=== PATIENT | female | born 1970 | race American Indian/Alaskan Native ===

== ENCOUNTER 2016-12-10 13:45 | Emergency (ER) | payer MEDICAID ==
--- NOTE | 2016-12-10 17:02 | Emergency Department Report ---
HPI - General Chief Complaint: Extremity Injury, Upper Time Seen by Provider: 12/10/16 16:27 - HPI HPI: 46-year-old female presents today stating that her primary care provider is out of town for 30 days and she needs a refill of her blood pressure and pain medication. Patient states that she has history of right-sided facial fracture and has a kate placed in her left arm. Patient gets prescribed tramadol or Vicodin for her pain. Patient states that she's been out of her metoprolol since . Denies following up with pain management. Denies fevers, chills, nausea, vomiting, chest pain, shortness of breath, abdominal pain. Denies any medical complaints. ED Past Medical Hx - Past Medical History Previous Medical History?: Yes Hx Hypertension: Yes Hx Seizures: Yes Additional medical history: mitral valve prolapse, neuralgia - Surgical History Past Surgical History?: Yes Additional Surgical History: gastric bypass (2009), right shoulder sugery - Social History Smoking Status: Never Smoker Substance Use Type: None - Medications Home Medications: Home Medications Medication Instructions Recorded Confirmed Last Taken Type Lisinopril [Zestril TAB] 20 mg PO QDAY #30 tablet 12/10/16 Unknown Rx Metoprolol [Lopressor TAB] 50 mg PO BID #60 tablet 12/10/16 Unknown Rx traMADol [Ultram 50 MG tab] 50 mg PO Q6HR PRN #20 tablet 12/10/16 Unknown Rx ED Review of Systems ROS: Stated complaint: RT ARM PAIN/FACIAL PAIN Other details as noted in HPI Constitutional: denies: chills, fever, malaise Eyes: denies: eye pain ENT: denies: ear pain, throat pain, congestion Respiratory: denies: cough, shortness of breath, wheezing Cardiovascular: denies: chest pain, palpitations Endocrine: no symptoms reported Gastrointestinal: denies: abdominal pain, nausea, vomiting Musculoskeletal: arthralgia Skin: denies: rash Neurological: denies: headache, weakness Physical Exam - Physical Exam Vital Signs: Vital Signs 12/10/16 13:51 Temperature 98.3 F Pulse Rate 70 Respiratory 18 Rate Blood Pressure 156/98 O2 Sat by Pulse 98 Oximetry Physical Exam: GENERAL: The patient is well-developed and well-nourished. Patient is in NAD. CHEST/LUNGS: Clear to auscultation throughout. HEART/CARDIOVASCULAR: Regular rate and rhythm. ABDOMEN: Abdomen is soft, nontender. No guarding or rebound tenderness. EXTREMITIES: Peripheral pulses intact. Capillary refill less than 2 seconds. NEURO: Alert and oriented x 3. Normal gait. ED Course Vital Signs 12/10/16 13:51 Temperature 98.3 F Pulse Rate 70 Respiratory 18 Rate Blood Pressure 156/98 O2 Sat by Pulse 98 Oximetry ED Medical Decision Making - Lab Data Vital Signs 12/10/16 13:51 Temperature 98.3 F Pulse Rate 70 Respiratory 18 Rate Blood Pressure 156/98 O2 Sat by Pulse 98 Oximetry - Medical Decision Making 46-year-old female presents today for medication refill of her blood pressure medications and tramadol. Explained to patient that emergency department is not a place to refill her medication, patient expressed understanding. Patient is in no acute distress at this time. She will be discharged home and is encouraged to follow up with a primary care provider. She is encouraged to return to the emergency room for any worsening symptoms. Critical care attestation.: If time is entered above; I have spent that time in minutes in the direct care of this critically ill patient, excluding procedure time. ED Disposition Clinical Impression: Chronic pain due to injury HTN (hypertension) Qualifiers: Hypertension type: essential hypertension Qualified Code(s): I10 - Essential ( primary) hypertension Disposition: DISCHARGED TO HOME OR SELFCARE Is pt being admited?: No Does the pt Need Aspirin: No Condition: Stable Instructions: Hypertension (ED), Chronic Pain (ED) Additional Instructions: Follow-up with primary care provider. Return to the emergency department if symptoms worsen. Prescriptions: Lisinopril [Zestril TAB] 20 mg PO QDAY #30 tablet Metoprolol [Lopressor TAB] 50 mg PO BID #60 tablet traMADol [Ultram 50 MG tab] 50 mg PO Q6HR PRN #20 tablet PRN Reason: Pain Referrals: NOLAN LICONA MD [Primary Care Provider] - 3-5 Days Forms: Work/School Release Form(ED) Time of Disposition: 17:04
[2016-12-10 17:28] VITALS: BP 150/97
== END 2016-12-10 17:25 | disposition home or self-care (01) ==
LOC: ED 13:45
DX: G89.21 Chronic pain due to trauma (principal); M79.602 Pain in left arm; I10 Essential (primary) hypertension; R56.9 Unspecified convulsions
CPT/HCPCS: 99282

== ENCOUNTER 2017-03-23 10:47 | Outpatient (CLI) | payer MEDICAID ==
--- NOTE | 2017-03-23 12:21 | Ultrasound Report ---
Bilateral mammogram and left breast ultrasound: The patient presents with a history of palpable lumps in her lateral left breast which have been present for at least 5 years without significant change. They currently however feel slightly sore. Markers were placed over the areas of concern. Routine views were obtained in addition to an exaggerated CC projection in the lateral breast. Comparison is made to her prior exam in December 2013. Routine views demonstrates an intermediate fibroglandular pattern which is symmetrically distributed. There is no discrete mass nor architectural distortion related to the markers. When compared to her prior there is a focal area of inhomogeneous fibroglandular appearing tissue seen only in the MLO projection and related to one of the markers which is not identified on her prior exam. The findings otherwise appear unchanged bilaterally. Ultrasound over the areas of concern located in the 2:00 location show no abnormality. CAD used. Impression: The mammographic left asymmetry not identified on prior scan has no suspicious characteristics and has no correlation with ultrasound. Recommendation: 6 month left mammogram followup to confirm stability of findings. BI-RADS CATEGORY: 3 = Probably benign ACR BI-RADS MAMMOGRAPHIC CODES: 0 = Needs additional imaging evaluation; 1 = Negative; 2 = Benign; 3 = Probably benign; 4 = Suspicious; 5 = Malignant; 6 = Known biopsy-proven malignancy COMMENT: 1. Dense breast tissue, i.e., adenosis, fibrocystic changes, etc., may obscure an underlying neoplasm. 2. Approximately 10% of cancers are not detected with mammography. 3. A negative mammography report should not delay biopsy if a clinically suspicious mass is present.
== END 2017-03-23 10:48 | disposition home or self-care (01) ==
LOC: MAMMO 10:47
PROVIDERS: ATTEND Family Medicine
DX: N63 Unspecified lump in breast (principal)
CPT/HCPCS: 76642; G0204; 77066